=== PATIENT | female | born 1955 | race American Indian/Alaskan Native ===

== ENCOUNTER 2018-05-03 07:49 | Day surgery (SDC) | payer BC, OTHER ==
[~2018-05-03 07:49] MED LIST: Bupivacaine 0.25%/EPINEPHrine 1:200,000 10 ML SDV ONE
[2018-05-03] MEDS ORDERED: Lactated Ringers 1,000 ML IV SCH (08:00)
[2018-05-03] MEDS ORDERED: Bupivacaine 0.25%/EPINEPHrine 1:200,000 10 ML SDV INJECT ONE (08:00)
[2018-05-03] MEDS ORDERED: ceFAZolin 2 GM in Premix Bag 1 BAG IV ONE (08:00)
[2018-05-03] MEDS ORDERED: Acetaminophen/HYDROcodone 325-5 MG Tab PO PRN (08:00)
--- NOTE | 2018-05-03 08:41 | PCM.PREANE ---
Preanesthetic Assessment - Procedure Proposed Procedure: Right middle finger trigger release - Anesthesia/Transfusion/Family Hx Anesthesia History: Prior Anesthesia Without Reaction Family History of Anesthesia Reaction: No Transfusion History: Prior Transfusion Without Reaction Intubation History: Unknown - Review of Systems General: No Symptoms Pulmonary: No Symptoms Cardiovascular: No Symptoms Gastrointestinal: No Symptoms Neurological: Pre-Existing Deficit, Other (CVA with R side weakness) Other: Reports: None - Physical Assessment NPO Status Date: 05/02/18 NPO Status Time: 22:00 Height: 5 ft 2 in Weight: 100 lb ASA Class: 2 Mental Status: Alert & Oriented x3 Airway Class: Mallampati = 1 Dentition: Reports: Normal Dentition Thyro-Mental Finger Breadths: 3 Mouth Opening Finger Breadths: 3 ROM/Head Extension: Full Lungs: Clear to Auscultation, Normal Respiratory Effort Cardiovascular: Regular Rate, Regular Rhythm - Allergies Allergies/Adverse Reactions: Allergies Allergy/AdvReac Type Severity Reaction Status Date / Time latex Allergy Itching Verified 05/01/18 10:19 - Blood Blood Available: No Product(s) Available: None - Anesthesia Plan Pre-Op Medication Ordered: None - Acknowledgements Anesthesia Type Planned: MAC Pt an Appropriate Candidate for the Planned Anesthesia: Yes Alternatives and Risks of Anesthesia Discussed w Pt/Guardian: Yes Pt/Guardian Understands and Agrees with Anesthesia Plan: Yes PreAnesthesia Questionnaire HEENT History: Reports: Other (See Below) Other HEENT History: uses glasses for driving Cardiovascular History: Reports: Other (See Below) Other Cardiovascular History: states blood pressure is "up and down" Respiratory History: Reports: Other (See Below) Other Respiratory History: recent upper respiratory infection/ sinus infection [employer] History: Reports: Musculoskeletal History: Reports: RA, SLE Neurological History: Reports: CVA Other Neuro History: 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 Hematologic History: Reports: Blood Transfusion(s) Immunologic History: Reports: SLE Oncologic (Cancer) History: Reports: Uterine Dermatologic History: Reports: Other (See Below) Other Dermatologic History: has itching on back and kegs- possible fungus infection - Past Surgical History GI Surgical History: Reports: Appendectomy Female Surgical History: Reports: Breast Biopsy, Hysterectomy Other Oncologic Surgeries/Procedures: Hysterectomy - SUBSTANCE USE Smoking Status *Q: Current Every Day Smoker Tobacco Use Within Last Twelve Months: Cigarettes Recreational Drug Use History: No - HOME MEDS Home Medications: Home Meds Aspirin [[place] Aspirin EC] 81 mg PO DAILY 04/28/18 [History] Fluticasone/Salmeterol [Advair 250-50] 1 inhalation INH ASDIRECTED 04/28/18 [ History] Furosemide 20 mg PO DAILY 04/28/18 [History] Gabapentin [Neurontin] 300 mg PO BID 04/28/18 [History] Hydrocortisone [Hydrocortisone 2.5% Crm] 1 applic TOP ASDIRECTED PRN 04/28/18 [ History] Hydroxychloroquine Sulfate 200 mg PO BID 04/28/18 [History] Topiramate [Topamax] 100 mg PO DAILY 04/28/18 [History] Fluticasone/Salmeterol [Advair 250-50 Diskus] 1 puff INH DAILY PRN 05/01/18 [ History] - CURRENT (IN HOUSE) MEDS Current Meds: Current Medications Hydrocodone Bitart/Acetaminophen ([place] 325-5 Mg) 1 tab PO Q4H PRN PRN Reason: Pain Lactated Ringer's (Ringers, Lactated) 1,000 mls @ 125 mls/hr IV ASDIRECTED CHARLEY Discontinued Medications Bupivacaine HCl/Epinephrine Bitart (Marcaine 0.25%/Epinephrine 1:200,000) 10 ml INJECT ONETIME ONE Stop: 05/03/18 08:01 Bupivacaine HCl/Epinephrine Bitart (Marcaine 0.25%/Epinephrine 1:200,000) Confirm Administered Dose 10 ml .ROUTE .STK-MED ONE Stop: 05/03/18 07:21 Cefazolin Sodium/Dextrose 2 gm (/ Premix) 50 mls @ 100 mls/hr IV ONETIME ONE Stop: 05/03/18 08:29
[2018-05-03] MEDS ORDERED: Lidocaine 2% 5 ML SDV ONE (08:45)
[2018-05-03] MEDS ORDERED: Midazolam 1 MG/ML 2 ML SDV ONE (08:46)
[2018-05-03] MEDS ORDERED: fentaNYL 100 MCG/2 ML SDV ONE (08:46)
[2018-05-03] MEDS ORDERED: Propofol 200 MG/20 ML SDV ONE (08:46)
[2018-05-03] MEDS ORDERED: Sodium Chloride 0.9% 20 ML ONE (09:40)
[2018-05-03] MEDS ORDERED: ceFAZolin 1 GM Vial ONE (09:40)
[2018-05-03] MEDS ORDERED: ePHEDrine 50 MG/ML SDV ONE (09:51)
--- NOTE | 2018-05-03 10:12 | PCM.POSTAN ---
POST ANESTHESIA ASSESSMENT - MENTAL STATUS Mental Status: Alert (direct return from OR), Oriented - RESPIRATORY Respiratory Status: Respiratory Rate WNL, Airway Patent, O2 Saturation Stable - CARDIOVASCULAR CV Status: Pulse Rate WNL, Blood Pressure Stable - GASTROINTESTINAL GI Status: No Symptoms - POST OP HYDRATION Hydration Status: Adequate & Stable
--- NOTE | 2018-05-03 10:13 | PCM48HPAN ---
Post Anesthesia Note - EVALUATION WITHIN 48HRS OF ANESTHETIC Vital Signs in Normal Range: Yes Patient Participated in Evaluation: Yes Respiratory Function Stable: Yes Airway Patent: Yes Cardiovascular Function Stable: Yes Hydration Status Stable: Yes Pain Control Satisfactory: Yes Nausea and Vomiting Control Satisfactory: Yes Mental Status Recovered: Yes Resp Rate: 14 - COMMENTS/OBSERVATIONS Free Text/Narrative:: care recommended with her weaker right side
--- NOTE | 2018-05-03 13:17 | PCM.OPNOTE ---
- General Post-Op/Procedure Note Date of Surgery/Procedure: 05/03/18 Operative Procedure(s): right middle finger trigger finger release Pre Op Diagnosis: right middle finger trigger finger Post-Op Diagnosis: Same Anesthesia Technique: Local, MAC Primary Surgeon: Jacqueline Rizzo Assistant Finance Manager: Rebeca Hollingsworth Complications: None Condition: Good
--- NOTE | 2018-05-03 23:08 | OR ---
SURGEON: MARCE VERMA MD DATE OF PROCEDURE: 05/03/2018 PREOPERATIVE DIAGNOSIS: Right middle finger trigger finger, in rheumatoid. POSTOPERATIVE DIAGNOSIS: Right middle finger trigger finger, in rheumatoid. PROCEDURE: Right middle finger trigger finger release. ENCODING MACHINE OPERATOR: ANDRE Nunn. REASON FOR AND ROLE OF ENCODING MACHINE OPERATOR: Retraction, prepping, draping, positioning and closure assistance. ANESTHESIA: Local MAC. INDICATIONS: Ms. Wallace is a 63-year-old female, seen today in evaluation for right middle finger trigger finger. We discussed the risks and benefits of debulking the tendon versus tendon sheath release, traditionally and rheumatoid. 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 We discussed risks and benefits of this versus the risks of thinning the tendons and possible tendon rupture. She does not want a wrist tendon rupture and she does believe that because her rheumatoid is well controlled and very mild and given her age, ulnar drift is likely something she will not have to deal with. We discussed thoroughly the risks and benefits and she has decided that it is more important to be functional at this time as the steroid injections have not worked and she is afraid of the tendon rupture option and just not completely handling the dysfunction she has. Again, risks and benefits were discussed with her thoroughly and she was in agreement to proceed. PROCEDURE IN DETAIL: After informed consent was obtained and placed on the chart, the patient was brought to the operating theater and in supine position. After adequate local MAC anesthesia was obtained, the area was prepped and draped. A time-out was completed to confirm side and site. Marcaine 0.25% with epinephrine was injected into the area and the arm was exsanguinated and the tourniquet was insufflated to 200 mmHg. A transverse incision was made over the A1 omid with blunt dissection taking care to protect the neurovascular bundles. Once the omid was located, the tendon was placed through range of motion. Though there is some global swelling here, the ability for reduction in the size of the tendon is somewhat difficult. It is more globally swollen than any focal areas of ragged or irritated area for debridement. There were no rice bodies or any sort of that type of inflammatory process present. The A1 omid is quite tight. This was released using a #15 blade until complete release of the ligament. The finger was brought through range of motion and there was no popping, locking, or triggering. Once adequately released, the area was copiously irrigated. A 5-0 nylon stitch in a horizontal mattress fashion was used to close the skin. The patient tolerated this well and was dressed with Xeroform, fluffs, and a Kerlix gauze dressing and a 2-inch Lobito wrap. FOLLOWUP INSTRUCTIONS: The patient will see us in 2 weeks; sooner if any problems, questions, or concerns. Prescription for pain control was provided for her today. YASHHE / KIANAL /[id number]
== END 2018-05-03 10:40 | disposition home or self-care (01) ==
LOC: MW.SDS 07:49
PROVIDERS: ATTEND Plastic Surgery
DX: M65.331 Trigger finger, right middle finger (principal); I69.351 Hemiplegia and hemiparesis following cerebral infarction affecting right dominant side; I10 Essential (primary) hypertension; F17.210 Nicotine dependence, cigarettes, uncomplicated; M06.9 Rheumatoid arthritis, unspecified; K21.9 Gastro-esophageal reflux disease without esophagitis; Z79.82 Long term (current) use of aspirin; Z79.899 Other long term (current) drug therapy
CPT/HCPCS: 26055; J0690; J2250; J2704; J3010; J3490; J7120

== ENCOUNTER 2022-06-24 11:49 | Observation (INO) | payer MEDICARE, BC ==
[2022-06-24] MEDS ORDERED: Morphine 4 MG/ML Syringe IVPUSH ONE (11:56)
[2022-06-24] MEDS ORDERED: Ondansetron 4 MG/2 ML SDV IVPUSH ONE (11:56)
[2022-06-24] MEDS: Lactated Ringers 1,000 ML IV SCH ×2 (12:22→18:14)
[2022-06-24 13:13] LABS: CORONAVIRUS COVID-19 NAA NEGATIVE (NEGATIVE); INFLUENZA A NAA NEGATIVE (NEGATIVE); INFLUENZA B NAA NEGATIVE (NEGATIVE)
[2022-06-24] MEDS ORDERED: Morphine 2 MG/ML SYRINGE IVPUSH ONE (13:41)
[2022-06-24 13:46] LABS: CARBON DIOXIDE,CO2 21.5 mmol/L (21.0-32.0)
[2022-06-24] MEDS ORDERED: Nicotine 21 MG/24 Hr Patch TRDERM ONE (16:20)
[2022-06-24] MEDS ORDERED: Pantoprazole 40 MG in Sodium Chloride 0.9% 10 ML IVPUSH ONE (18:30)
[2022-06-24] MEDS ORDERED: Ondansetron 4 MG/2 ML SDV IVPUSH PRN (18:31)
[2022-06-24] MEDS ORDERED: Albuterol/Ipratropium 3.0-0.5 MG/3 ML Neb Soln NEB PRN (18:40)
[2022-06-24] MEDS: Morphine 2 MG/ML SYRINGE IVPUSH PRN (19:41)
[2022-06-24] MEDS ORDERED: Topiramate 100 MG Tab PO SCH (21:30)
[2022-06-24] MEDS ORDERED: Hydroxychloroquine 200 MG Tab PO SCH (21:30)
[2022-06-24] MEDS ORDERED: Gabapentin 300 MG Cap PO SCH (21:30)
[2022-06-24] MEDS ORDERED: Acetaminophen 500 MG Tab PO PRN (23:22)
[2022-06-25] MEDS: Morphine 2 MG/ML SYRINGE IVPUSH PRN ×3 (00:15→09:28)
[2022-06-25] MEDS: Lactated Ringers 1,000 ML IV SCH ×2 (02:22→09:38)
[2022-06-25 05:56] LABS: BLOOD UREA NITROGEN,BUN 9 mg/dL (7.0-18.0); CARBON DIOXIDE,CO2 26.2 mmol/L (21.0-32.0); CHLORIDE,CL 105 mmol/L (98-107); GLUCOSE RANDOM 109 mg/dL (74-106); POTASSIUM,K 3.4 mmol/L (3.5-5.1); SODIUM,NA 139 mmol/L (136-145)
[2022-06-25 06:25] LABS: ESTIMATED GFR 94 mL/min (>60)
[2022-06-25] MEDS ORDERED: Pantoprazole 40 MG in Sodium Chloride 0.9% 10 ML IVPUSH SCH (09:00)
[2022-06-25] MEDS ORDERED: Enoxaparin 40 MG/0.4 ML Syringe SUBCUT SCH (09:00)
[2022-06-25] MEDS ORDERED: Nicotine 21 MG/24 Hr Patch TRDERM SCH (09:00)
[2022-06-25] MEDS: Heparin Sodium 5,000 Units/ML Vial SUBCUT SCH ×2 (09:26→16:41)
[2022-06-25] MEDS ORDERED: Magnesium Sulfate/Water 2 GM in Premix Bag 1 BAG IV ONE (11:59)
[2022-06-25] MEDS ORDERED: Potassium Chloride 10% 20 MEQ/15 ML Soln 30 ML UD Cup PO ONE (11:59)
[2022-06-25] MEDS ORDERED: oxyCODONE 5 MG Tab PO PRN (14:29)
== END 2022-06-25 19:30 | disposition home or self-care (01) ==
LOC: MW.ED 11:49 → MW.MS 16:17
PROVIDERS: ADMIT Student in an Organized Health Care Education/Training Program; ATTEND Student in an Organized Health Care Education/Training Program
DX: S72.112A Displaced fracture of greater trochanter of left femur, initial encounter for closed fracture (principal); I10 Essential (primary) hypertension; M32.9 Systemic lupus erythematosus, unspecified; G45.9 Transient cerebral ischemic attack, unspecified; W19.XXXA Unspecified fall, initial encounter; Z91.018 Allergy to other foods; Z91.040 Latex allergy status; Z91.030 Bee allergy status; Z79.899 Other long term (current) drug therapy; Z98.890 Other specified postprocedural states; F17.210 Nicotine dependence, cigarettes, uncomplicated; Z20.822 Contact with and (suspected) exposure to COVID-19
CPT/HCPCS: 0240U; 36415; 51702; 72192; 73501; 73721; 80053; 83735; 83880; 84100; 84484; 85025; 85610; 93005; 97161; 97530; A9270; C9113; J1644; J2270; J2405; J3475; J3490; J7120